=== PATIENT | male | born 1955 | race Caucasian/White ===

== ENCOUNTER 2017-11-15 14:50 | Inpatient (IN) | payer OTHER ==
[2017-11-15] VITALS (24 sets, daily range): BP systolic 72–119; BP diastolic 47–81
[~2017-11-15] VITALS: Ht 165.1 cm; Wt 66.4 kg
--- NOTE | ~2017-11-15 | EKG ---
[facility] [employer] [address] ELECTROCARDIOGRAM REPORT Name: MIGUEL ROLLINS Room #: [facility] HUSSAIN Bryan#: [id number] Admission: 11/15/17 Attend Phys: Discharge: Date of : 57 Report #: [id number] THIS REPORT FOR: //name// [facility] ED Test Date: 2017-11-15 Test Time: 14:59:27 Pat Name: MIGUEL ROLLINS Department: Room: Gender: Medical [employer] Instructor: [facility] : 1955 Requested By: Ever Ayala Order Number: [id number] MD: Aung Mccarthy Measurements Intervals [place] Rate: 62 P: -17 PA: 155 QRS: 32 QRSD: 100 T: 57 QT: 472 QTc: 480 Interpretive Statements Sinus rhythm Anteroseptal infarct, old Borderline ST elevation, inferior leads No previous ECG available for comparison Electronically Signed On 11-15-2017 16:34:31 CDT by Aung Mccarthy [email or web address] <ELECTRONICALLY SIGNED> By: Aung Mccarthy MD, [facility] 11/15/17 1634 [id number] [id number] Aung Mccarthy MD, FACC /EPI
--- NOTE | ~2017-11-15 | HC ---
[facility] [address] [place] [address] CONSULTATION Name: AYOMIGUEL Room #: 237-P [facility] IN M.R.#: [id number] Admission: 11/15/17 Attend Phys: Mark Garcia MD Discharge: Date of : 57 Report #: [id number] THIS REPORT FOR: //name// CC: NO PCP Mark Garcia REASON FOR PRESENTATION: Decreased p.o. intake, weakness. REASON FOR CONSULTATION: Acute kidney injury. HISTORY OF PRESENT ILLNESS: History was obtained from the family members. The patient is a 62-year-old with past medical history of dementia, hypertension. He was discharged from [facility] yesterday. He has been feeling weak and tired. Family reported decreased p.o. intake. No vomiting. Ever since yesterday, he has not been himself. It looks like that he had been in 2 different nursing facilities, [facility] about a year ago. He was discharged to another facility from [facility] and then to [place]. His tgyjobli-yi-tkp is in the medical field. She checked his blood pressure and his blood pressure was extremely low at 50/30. She opted to bring him to the Emergency Room, where he was found to be in an acute kidney injury with a creatinine of 14 and a BUN of 28. He has an anion gap of 21. PAST MEDICAL HISTORY: 1. Hypertension. 2. Dementia. 3. Peptic ulcer disease. MEDICATIONS: 1. Lisinopril. 2. Pantoprazole. 3. Donepezil. ALLERGIES: None. SOCIAL HISTORY: He resides with his son and his agqiecwy-mc-qqi. No drug or alcohol abuse. Currently smoking. REVIEW OF SYSTEMS: Per the family. CONSTITUTIONAL: No fever or chills. PULMONARY: No cough or hemoptysis. CARDIOVASCULAR: No chest pain or palpitation. GASTROINTESTINAL: Decreased p.o. intake with abdominal pain. MUSCULOSKELETAL: Weakness. SKIN: No rash or ulcerations. PHYSICAL EXAMINATION: GENERAL: Extremely dehydrated thin, cachectic, emaciated. [facility] [address] [place] [address] CONSULTATION Name: AYOMIGUEL Room #: [facility] IN M.R.#: [id number] Admission: 11/15/17 Attend Phys: Mark Garcia MD Discharge: Date of : 57 Report #: [id number] VITAL SIGNS: Pulse is 66, temperature is 36.4 and blood pressure is 73/47. HEAD AND NECK: Dry mucous membrane. CHEST: Decreased air entry bilaterally. CARDIOVASCULAR: Regular, with no rub. ABDOMEN: Soft, nontender with no hepatosplenomegaly. LOWER EXTREMITIES: No edema. LABORATORY DATA: Laboratory values reviewed. Sodium 132, potassium 4.1, BUN 128 and creatinine 14.1. White blood cell count is 11.8. IMAGING: Chest x-ray reviewed, negative. Head CT reviewed, negative. Chest CT and abdomen reviewed, negative. ASSESSMENT, IMPRESSION AND PLAN: 1. Acute kidney injury. 2. Anion gap acidosis. 3. Hyponatremia. 4. Extreme dehydration. 5. Dementia. 6. Hypertension. 7. Admission to the ICU. 8. Aggressive fluid resuscitation. 9. Acute kidney injury workup. No evidence of obstructions on my examination. 10. Reformulate the IV fluids. 11. The patient has a baseline creatinine of around 0.8 back in October. I expect him to fully recover with hydration. <ELECTRONICALLY SIGNED> By: Mary Grace Nathan MD 11/17/17 0756 [id number] Mary Grace Nathan MD /nt
[2017-11-15 15:16] LABS: ABSOLUTE NEUTROPHILS 8.5 thou/uL (1.4-8.2); BASOPHILS 0.6 % (0.0-2.0); EOSINOPHILS 0.1 % (0.0-3.0); HEMATOCRIT 44.3 % (42.0-52.0); HEMOGLOBIN 14.9 gm/dL (14.0-18.0); LYMPHOCYTES 17.9 % (24.0-44.0); MCH 29.7 pg (26.0-34.0); MCHC 33.7 g/dL (28.0-37.0); MCV 88.1 fL (80.0-100.0); MONOCYTES 9.1 % (1.0-8.0); PLATELET COUNT 204 thou/uL (150-400); POLYS 72.3 % (36.0-66.0); RBC 5.03 mil/uL (4.50-6.00); RDW 15.3 % (10.5-14.5); WBC 11.8 thou/uL (4.0-11.0)
[2017-11-15] MEDS ORDERED: LISINOPRIL20 MG PO (15:17)
[2017-11-15] MEDS ORDERED: PROTONIX40 M1 PO (15:17)
[2017-11-15] MEDS ORDERED: ARICEPT 5 MG TAB5 MG PO (15:18)
[2017-11-15 15:23] LABS: ANION GAP 21 mmol/L (7-16); BUN 128 mg/dL (7-18); CALCIUM 9.4 mg/dL (8.5-10.1); CHLORIDE 92 mmol/L (98-107); CO2 19 mmol/L (21-32); CREATININE 14.1 mg/dL (0.7-1.3); GLUCOSE 189 mg/dL (74-106); POTASSIUM 4.1 mmol/L (3.5-5.1); SODIUM 132 mmol/L (136-145)
[2017-11-15 15:33] LABS: ALBUMIN 3.8 g/dL (3.4-5.0); SGOT 32 U/L (15-37); SGPT 51 U/L (30-65); TOTAL BILIRUBIN 0.6 mg/dL (<0.1-1.0); TOTAL PROTEIN 8.4 g/dL (6.4-8.2); TROPONIN-I < 0.04 ng/mL (<0.06)
[2017-11-15 15:48] LABS: URINE BLOOD 2+ (Negative); URINE CLARITY SL CLOUDY; URINE COLOR YELLOW; URINE GLUCOSE-RANDOM* TRACE (Negative); URINE KETONES TRACE (Negative); URINE LEUKOCYTES-REFLEX TRACE (Negative); URINE NITRITE-REFLEX NEGATIVE (Negative); URINE PROTEIN (DIPSTICK) 2+ (Negative); URINE SPECIFIC GRAVITY >= 1.030 (1.005-1.035); URINE UROBILINOGEN 0.2 E.U./dl (0.2-1.0)
[2017-11-15 15:50] LABS: ICTOTEST (BILI CONFIRMATORY) Negative (Negative); URINE BILIRUBIN NEGATIVE (Negative)
[2017-11-15 15:55] LABS: AMORPHOUS URATES Moderate /LPF (None Seen); BACTERIA-REFLEX 1-9 Few /HPF (None Seen); HYALINE CASTS 0-3 Few /LPF (None Seen); MUCUS 0-3 Light strn/LPF (None Seen); SQUAMOUS 0-3 Few /LPF (0-3); URINE RBC 3-10 Few /HPF (0-2); URINE WBC-REFLEX 0-5 Rare /HPF (0-5)
[2017-11-15 18:35] LABS: CALCIUM 7.8 mg/dL (8.5-10.1); CREATININE 11.5 mg/dL (0.7-1.3); POTASSIUM 4.8 mmol/L (3.5-5.1)
[2017-11-15 18:41] LABS: ALBUMIN 2.9 g/dL (3.4-5.0); TOTAL BILIRUBIN 0.5 mg/dL (<0.1-1.0); TOTAL PROTEIN 6.4 g/dL (6.4-8.2)
[2017-11-15 19:08] LABS: FOLIC ACID 19.9 ng/mL (8.6-58.9); TSH 0.286 uIU/mL (0.358-3.740)
[2017-11-15 19:13] LABS: URINE BILIRUBIN NEGATIVE (Negative); URINE BLOOD 3+ (Negative); URINE CLARITY CLEAR; URINE COLOR YELLOW; URINE GLUCOSE-RANDOM* TRACE (Negative); URINE KETONES NEGATIVE (Negative); URINE LEUKOCYTES TRACE (Negative); URINE NITRITE NEGATIVE (Negative); URINE PROTEIN (DIPSTICK) TRACE (Negative); URINE SPECIFIC GRAVITY 1.015 (1.005-1.035); URINE UROBILINOGEN 0.2 E.U./dl (0.2-1.0)
[2017-11-15 19:17] LABS: URINE CREATININE-RANDOM* 64.9 mg/dL; URINE PROTEIN-RANDOM* 42.9 mg/dL (<11.9)
[2017-11-15 19:22] LABS: BACTERIA None Seen /HPF (None Seen); CASTS None Seen /LPF (None Seen); CRYSTALS None Seen /LPF (None Seen); SQUAMOUS 4-10 Moderate /LPF (0-3); URINE RBC None Seen /HPF (0-2); URINE WBC 6-15 Few /HPF (0-5)
[2017-11-16] VITALS (35 sets, daily range): BP systolic 81–108; BP diastolic 58–85
[2017-11-16 05:06] LABS: ABSOLUTE NEUTROPHILS 5.5 thou/uL (1.4-8.2); BASOPHILS 0.7 % (0.0-2.0); EOSINOPHILS 0.6 % (0.0-3.0); HEMATOCRIT 37.9 % (42.0-52.0); LYMPHOCYTES 21.5 % (24.0-44.0); MCH 29.3 pg (26.0-34.0); MCV 86.3 fL (80.0-100.0); MONOCYTES 11.6 % (1.0-8.0); PLATELET COUNT 173 thou/uL (150-400); POLYS 65.6 % (36.0-66.0); RDW 14.6 % (10.5-14.5); WBC 8.4 thou/uL (4.0-11.0)
[2017-11-16 05:07] LABS: HEMOGLOBIN 12.9 gm/dL (14.0-18.0)
[2017-11-16 05:54] LABS: ALBUMIN 2.6 g/dL (3.4-5.0); ANION GAP 15 mmol/L (7-16); BUN 92 mg/dL (7-18); CALCIUM 8.1 mg/dL (8.5-10.1); CHLORIDE 104 mmol/L (98-107); CHOLESTEROL 173 mg/dL (<200); CO2 22 mmol/L (21-32); GLUCOSE 137 mg/dL (74-106); HDL CHOLESTEROL 35 mg/dL (>40); LDL CHOLESTEROL 98 mg/dL (<100); MAGNESIUM 1.9 mg/dL (1.8-2.4); PHOSPHORUS 5.2 mg/dL (2.5-4.9); SODIUM 141 mmol/L (136-145); TC:HDL 4.9 Ratio (Not establshd); TRIGLYCERIDE 201 mg/dL (<150); VLDL 40 mg/dL (<40)
[2017-11-16 05:56] LABS: CREATININE 5.5 mg/dL (0.7-1.3); POTASSIUM 3.3 mmol/L (3.5-5.1)
[2017-11-16 05:57] LABS: SERUM ASSESSMENT Clear
[2017-11-16 18:10] LABS: GLYCOHEMOGLOBIN (HGB A1C) 5.7 % (4.8-5.6)
[2017-11-17] VITALS (20 sets, daily range): BP systolic 80–1116; BP diastolic 55–89
[2017-11-17 04:47] LABS: ABSOLUTE NEUTROPHILS 4.4 thou/uL (1.4-8.2); BASOPHILS 1.2 % (0.0-2.0); HEMATOCRIT 36.9 % (42.0-52.0); HEMOGLOBIN 12.8 gm/dL (14.0-18.0); LYMPHOCYTES 31.6 % (24.0-44.0); MCH 29.8 pg (26.0-34.0); MCHC 34.8 g/dL (28.0-37.0); MCV 85.7 fL (80.0-100.0); MONOCYTES 11.9 % (1.0-8.0); PLATELET COUNT 160 thou/uL (150-400); POLYS 54.3 % (36.0-66.0); RBC 4.31 mil/uL (4.50-6.00); RDW 14.9 % (10.5-14.5); WBC 8.1 thou/uL (4.0-11.0)
[2017-11-17 04:59] LABS: ALBUMIN 2.6 g/dL (3.4-5.0); CALCIUM 8.6 mg/dL (8.5-10.1); CREATININE 1.2 mg/dL (0.7-1.3); MAGNESIUM 1.2 mg/dL (1.8-2.4); PHOSPHORUS 2.4 mg/dL (2.5-4.9); POTASSIUM 3.2 mmol/L (3.5-5.1)
[2017-11-17 14:45] LABS: MAGNESIUM 1.9 mg/dL (1.8-2.4)
[2017-11-17 14:46] LABS: POTASSIUM 4.2 mmol/L (3.5-5.1)
[2017-11-17 23:05] LABS: CORTISOL 30 MIN 36.7 ug/dL (Not Estab.); CORTISOL 60 MIN 38.4 ug/dL (Not Estab.)
[2017-11-18 04:18] VITALS: BP 104/62
[2017-11-18 07:30] VITALS: BP 103/68
[2017-11-18 07:35] LABS: ALBUMIN 2.5 g/dL (3.4-5.0); CALCIUM 8.5 mg/dL (8.5-10.1); CREATININE 0.9 mg/dL (0.7-1.3); PHOSPHORUS 2.2 mg/dL (2.5-4.9); POTASSIUM 3.4 mmol/L (3.5-5.1)
[2017-11-18 16:30] VITALS: BP 110/71
[2017-11-18 19:09] VITALS: BP 107/72
[2017-11-19 04:17] VITALS: BP 115/74
[2017-11-19 05:13] LABS: ABSOLUTE NEUTROPHILS 4.6 thou/uL (1.4-8.2); EOSINOPHILS 1.7 % (0.0-3.0); HEMATOCRIT 34.3 % (42.0-52.0); HEMOGLOBIN 11.7 gm/dL (14.0-18.0); LYMPHOCYTES 33.1 % (24.0-44.0); MCH 29.7 pg (26.0-34.0); MCV 87.3 fL (80.0-100.0); MONOCYTES 9.2 % (1.0-8.0); PLATELET COUNT 176 thou/uL (150-400); RBC 3.93 mil/uL (4.50-6.00); RDW 14.7 % (10.5-14.5); WBC 8.4 thou/uL (4.0-11.0)
[2017-11-19 05:20] LABS: ALBUMIN 2.4 g/dL (3.4-5.0); CALCIUM 7.9 mg/dL (8.5-10.1); CREATININE 0.7 mg/dL (0.7-1.3); PHOSPHORUS 2.1 mg/dL (2.5-4.9); POTASSIUM 3.8 mmol/L (3.5-5.1)
[2017-11-19 05:23] LABS: MAGNESIUM 0.9 mg/dL (1.8-2.4)
[2017-11-19 07:27] VITALS: BP 111/72
[2017-11-19 15:33] VITALS: BP 100/53; BP 105/65
[2017-11-19 20:00] VITALS: BP 125/60
[2017-11-20 04:40] VITALS: BP 121/78
[2017-11-20 05:57] LABS: BASOPHILS 1.2 % (0.0-2.0); EOSINOPHILS 2.4 % (0.0-3.0); HEMATOCRIT 35.5 % (42.0-52.0); LYMPHOCYTES 28.5 % (24.0-44.0); MCH 29.6 pg (26.0-34.0); MCHC 33.8 g/dL (28.0-37.0); MCV 87.6 fL (80.0-100.0); MONOCYTES 8.6 % (1.0-8.0); PLATELET COUNT 187 thou/uL (150-400); POLYS 59.3 % (36.0-66.0); RBC 4.05 mil/uL (4.50-6.00); RDW 14.5 % (10.5-14.5); WBC 8.4 thou/uL (4.0-11.0)
[2017-11-20 06:10] LABS: CALCIUM 8.6 mg/dL (8.5-10.1); CREATININE 0.7 mg/dL (0.7-1.3); MAGNESIUM 1.3 mg/dL (1.8-2.4); POTASSIUM 3.9 mmol/L (3.5-5.1)
[2017-11-20 07:09] VITALS: BP 125/83
[2017-11-20 20:00] VITALS: BP 114/57
[2017-11-21 04:30] VITALS: BP 99/52
[2017-11-21 07:10] VITALS: BP 107/72
[2017-11-21] MEDS ORDERED: ERGOCALCIF50000 UNIT PO (13:06)
[2017-11-21] MEDS ORDERED: CENTRUM SILVER1 EAC2 PO (13:06)
[2017-11-21 16:24] VITALS: BP 126/81
== END 2017-11-21 18:04 | DRG 315 ==
LOC: ER 14:50 → EROBS 16:38 → ICU 16:38 → 4E 11-17 18:07
PROVIDERS: Hospitalist; Internal Medicine Nephrology; Nurse Practitioner; Physician Assistant
DX: I95.9 Hypotension, unspecified (principal); N17.9 Acute kidney failure, unspecified; E87.2 Acidosis; E87.1 Hypo-osmolality and hyponatremia; R53.83 Other fatigue; I10 Essential (primary) hypertension; E86.0 Dehydration; E87.6 Hypokalemia; F17.210 Nicotine dependence, cigarettes, uncomplicated; E83.39 Other disorders of phosphorus metabolism; E83.42 Hypomagnesemia; F03.90 Unspecified dementia, unspecified severity, without behavioral disturbance, psychotic disturbance, mood disturbance, and anxiety; W19.XXXA Unspecified fall, initial encounter; Z87.11 Personal history of peptic ulcer disease; Y93.89 Activity, other specified; Y92.89 Other specified places as the place of occurrence of the external cause; Y99.8 Other external cause status; Z79.899 Other long term (current) drug therapy
CPT/HCPCS: 10078; 10183; 10783; 27000